=== PATIENT | male | born 1970 | race Caucasian/White ===

== ENCOUNTER 2017-07-31 15:06 | Emergency (ER) | payer OTHER, MEDICAID, SELFPAY | END 2017-07-31 17:07 | disposition home or self-care (01) | PROVIDERS: Emergency Provider Internal Medicine; Visit Provider Internal Medicine | DX: S39.012A Strain of muscle, fascia and tendon of lower back, initial encounter (principal); M62.830 Muscle spasm of back; T73.3XXA Exhaustion due to excessive exertion, initial encounter | CPT/HCPCS: 96372; 99283; J1885 ==